=== PATIENT | female | born 1945 | race Caucasian/White ===

== ENCOUNTER → 2016-10-21 | Outpatient (CLI) | payer OTHER | LOC: FIMAGING 10:14 | PROVIDERS: ATTEND Surgery | DX: Z12.39 Encounter for other screening for malignant neoplasm of breast (principal); N64.9 Disorder of breast, unspecified ==

== ENCOUNTER → 2017-04-26 | Outpatient (CLI) | payer OTHER | LOC: FIMAGING 14:08 | PROVIDERS: ATTEND Internal Medicine Hematology & Oncology | DX: Z12.39 Encounter for other screening for malignant neoplasm of breast (principal); N63 Unspecified lump in breast; Z98.890 Other specified postprocedural states ==

== ENCOUNTER → 2017-05-08 | Outpatient (CLI) | payer OTHER | LOC: FIMAGING 09:26 | PROVIDERS: ATTEND Nurse Practitioner Adult Health | DX: Z13.820 Encounter for screening for osteoporosis (principal); M85.80 Other specified disorders of bone density and structure, unspecified site; Z78.0 Asymptomatic menopausal state ==

== ENCOUNTER → 2017-06-21 | Outpatient (CLI) | payer OTHER | LOC: FIMAGING 12:42 | PROVIDERS: ATTEND Internal Medicine Hematology & Oncology | DX: Z85.3 Personal history of malignant neoplasm of breast (principal) | CPT/HCPCS: G0204 ==

== ENCOUNTER → 2017-10-19 | Outpatient (CLI) | payer OTHER | LOC: FIMAGING 13:38 | PROVIDERS: ATTEND Internal Medicine Hematology & Oncology | DX: Z08 Encounter for follow-up examination after completed treatment for malignant neoplasm (principal); Z85.3 Personal history of malignant neoplasm of breast ==

== ENCOUNTER → 2018-02-24 | Outpatient (CLI) | payer OTHER | LOC: FIMAGING 08:31 | PROVIDERS: ATTEND Physical Medicine & Rehabilitation | DX: R29.2 Abnormal reflex (principal); Z85.3 Personal history of malignant neoplasm of breast; G31.9 Degenerative disease of nervous system, unspecified; R90.82 White matter disease, unspecified; M50.321 Other cervical disc degeneration at C4-C5 level; M53.83 Other specified dorsopathies, cervicothoracic region; M48.03 Spinal stenosis, cervicothoracic region; M41.85 Other forms of scoliosis, thoracolumbar region; M48.07 Spinal stenosis, lumbosacral region; M51.85 Other intervertebral disc disorders, thoracolumbar region ==

== ENCOUNTER → 2018-05-02 | Outpatient (CLI) | payer OTHER | LOC: FIMAGING 08:19 | PROVIDERS: ATTEND Neurological Surgery | DX: M41.86 Other forms of scoliosis, lumbar region (principal); M51.36 Other intervertebral disc degeneration, lumbar region ==

== ENCOUNTER → 2018-05-30 | Outpatient (CLI) | payer OTHER | LOC: BMCIMAGING 12:29 | PROVIDERS: ATTEND Internal Medicine | DX: Z01.818 Encounter for other preprocedural examination (principal); J44.9 Chronic obstructive pulmonary disease, unspecified; M25.552 Pain in left hip ==

== ENCOUNTER 2018-06-05 08:13 | Day surgery (SDC) | payer OTHER ==
[2018-06-05] MEDS ORDERED: NS 1,000 ML IV ONE (08:16)
[2018-06-05] MEDS ORDERED: DIAZEPAM 5 MG TAB PO ONE (08:16)
[2018-06-05] MEDS ORDERED: ASPIRIN EC 325 MG TAB PO ONE ×2 (08:16→08:58)
[2018-06-05] MEDS ORDERED: diphenhydrAMINE 25 MG CAP PO ONE ×2 (08:16→08:57)
[2018-06-05] MEDS ORDERED: FAMOTIDINE 20 MG TAB PO ONE (08:16)
[2018-06-05] MEDS ORDERED: FAMOTIDINE 20 MG TAB ONE (08:57)
[2018-06-05] MEDS ORDERED: LIDOCAINE 1% 300 MG/30 ML SDV ONE (08:57)
[2018-06-05] MEDS ORDERED: VERAPAMIL 5 MG/2 ML VIAL ONE (08:58)
[2018-06-05] MEDS ORDERED: HEPARIN 10,000 UNIT/10 ML MDV (1,000 UNIT/ML) ONE (08:58)
[2018-06-05] MEDS ORDERED: DIAZEPAM 5 MG TAB ONE (08:58)
[2018-06-05] MEDS ORDERED: MIDAZOLAM 2 MG/2 ML VIAL ONE (08:58)
[2018-06-05] MEDS ORDERED: fentaNYL 100 MCG/2 ML INJ ONE (08:58)
[2018-06-05 08:59] LABS: PLATELET COUNT 230 10^3/uL (150-400)
[2018-06-05] MEDS ORDERED: IOPAMIDOL (ISOVUE-370) 150 ML BTL IV ONE (08:59)
[2018-06-05 09:16] LABS: INR 1.02 (0.83-1.16); PROTIME(PATIENT) 13.6 SEC (12.0-15.0)
--- NOTE | 2018-06-05 09:24 | PDHPUP ---
History & Physical Update H&P update statement: This history and physical update is based on an assessment of the patient which was completed after admission or registration (within 24 hours), but prior to the surgery/procedure. H&P update: H&P reviewed & patient examined, no change in patient's condition since H&P completed (Rom test on right wrist normal at < 5 sec.)
--- NOTE | 2018-06-05 09:24 | PDPROPOC ---
Sedation Plan of Care Sedation Plan of Care: vital signs stable, mental status noted, patient educated of risks, benefits, alternatives, patient can tolerate sedation ASA Classification: ASA 1 Planned drugs: fentanyl, midazolam Mallampati Score: Class 2 Mallampati Reference Image: Patient passed 3-3-2 rule?: Yes
[2018-06-05] MEDS ORDERED: ONDANSETRON 4 MG/2 ML VIAL IVP PRN (10:18)
[2018-06-05] MEDS ORDERED: HYDROCODONE/APAP 5/325 TAB PO PRN (10:18)
[2018-06-05] MEDS ORDERED: ATROPINE SULFATE 1 MG/10 ML SYR IVP PRN (10:18)
--- NOTE | 2018-06-05 11:00 | PDDXCAT ---
Diagnostic Cath Note - . Date: 06/05/18 [employer] Farmers: Castillo Indication: other (Risk factors for CAD, abnormal nuclear stress test, and preoperative cardiac assessment.) - Procedure Access: right wrist Procedure: left heart catheterization, coronary angiography, left ventriculogram - Materials Left Heart Cath size: 5F Left Heart Cath materials: pigtail, other ([place]) - Findings-Left Heart Catheterization LM: Normal. LAD: Proximal ectasia and mild irregularities; mid-LAD 30-40%. LCX: Minimal irregularities. RCA: Mild irregularities proximal and mid-vessel. EDP: 12 mmHg LVEF: 60% Wall motion: Normal Complications: None Estimated blood loss: <50ml Closure method: TR Band Assessment: 1) Sgl-dnhx-irodloic coronary atherosclerosis. 2) Normal LV systolic function.
[2018-06-06] MEDS ORDERED: ATORVASTATIN CALCIUM 20 MG TAB PO SCH (09:00)
--- NOTE | 2018-06-07 11:52 | CPEKG ---
Test Reason : OPEN Blood Pressure : / mmHG Vent. Rate : 083 BPM Atrial Rate : 084 BPM P-R Int : 156 ms QRS Dur : 147 ms QT Int : 420 ms P-R-T Axes : 073 060 -03 degrees QTc Int : 494 ms Sinus rhythm Right bundle branch block Confirmed by Chuck Young ([id number]) on 06/07/2018 11:51:28 AM Referred By: Confirmed By:Chuck Young
== END 2018-06-05 13:15 | disposition home or self-care (01) ==
LOC: FCATH 08:13
PROVIDERS: ATTEND Internal Medicine Interventional Cardiology
DX: I25.10 Atherosclerotic heart disease of native coronary artery without angina pectoris (principal); I10 Essential (primary) hypertension; F17.200 Nicotine dependence, unspecified, uncomplicated; Z82.49 Family history of ischemic heart disease and other diseases of the circulatory system; Z85.3 Personal history of malignant neoplasm of breast
CPT/HCPCS: 93005; 93458; C1769; J1644; J2250; J3010; Q9967

== ENCOUNTER → 2018-06-08 | Outpatient (CLI) | payer OTHER | LOC: BHFA 11:30 | PROVIDERS: ATTEND Internal Medicine Cardiovascular Disease | DX: R00.2 Palpitations (principal) ==

== ENCOUNTER → 2018-06-13 | Outpatient (CLI) | payer OTHER | LOC: BHFA 15:30 | PROVIDERS: ATTEND Internal Medicine Cardiovascular Disease | DX: R06.02 Shortness of breath (principal); R00.2 Palpitations ==

== ENCOUNTER 2018-06-15 06:39 | Inpatient (IN) | payer OTHER ==
[2018-06-15] MEDS ORDERED: ACETAMINOPHEN 500 MG TAB PO ONE (06:56)
[2018-06-15] MEDS ORDERED: GABAPENTIN 300 MG CAP PO ONE (06:56)
[2018-06-15] MEDS ORDERED: morphINE PF 0.2 MG in SYRINGE INTRATHECAL 1 SYR IT ONE (06:56)
[2018-06-15] MEDS ORDERED: ceFAZolin 2 GM/DEXTROSE 100 ML IV ONE (06:56)
[2018-06-15] MEDS ORDERED: LR 1,000 ML IV ONE (06:58)
--- NOTE | 2018-06-15 07:59 | PDHPUP ---
History & Physical Update H&P update statement: This history and physical update is based on an assessment of the patient which was completed after admission or registration (within 24 hours), but prior to the surgery/procedure. H&P update: H&P reviewed & patient examined, no change in patient's condition since H&P completed, changes noted
[2018-06-15] MEDS ORDERED: BUPIVACAINE 0.25% 30 ML SDV ONE (08:24)
[2018-06-15] MEDS ORDERED: BACITRACIN 50,000 UNITS/10 ML SYR IRR ONE (08:24)
[2018-06-15] MEDS ORDERED: CHLORHEXIDINE GLUC HIBICLENS 118 ML BTL TP ONE (08:25)
[2018-06-15] MEDS ORDERED: EPINEPHrine 1 MG/ML INJ ONE (08:25)
[2018-06-15] MEDS ORDERED: THROMBIN (BOVINE) 20,000 UNIT VIAL TP ONE (08:25)
[2018-06-15] MEDS ORDERED: CITRATE DEXTROSE SOLN 500 ML BAG ONE (08:25)
--- NOTE | 2018-06-15 08:41 | PDANEPAE ---
ANE Past Medical History - Cardiovascular History Hx Hypertension: Yes Hx Arrhythmias: No Hx Chest Pain: No Hx Coronary Artery / Peripheral Vascular Disease: No Hx CHF / Valvular Disease: No Hx Palpitations: No Cardiovascular History Comment: pcp monitors bp medications - Pulmonary History Hx COPD: No Hx Asthma/Reactive Airway Disease: No Hx Recent Upper Respiratory Infection: No Hx Oxygen in Use at Home: No Hx Sleep Apnea: No Sleep Apnea Screening Result - Last Documented: Negative - Neurologic History Hx Cerebrovascular Accident: No Hx Seizures: No Hx Dementia: No Neurologic History Comment: gait disturbance d/t back issues, neurologist is following and will recheck after recovered from surgery - Endocrine History Hx Diabetes: No - Renal History Hx Renal Disorders: Yes Renal History Comment: overactive bladder- botox injections 12/2017 then became underactive had to self cath for 3 weeks, voiding normally now. hx of uti's since - Liver History Hx Hepatic Disorders: No - Neurological & Psychiatric Hx Hx Neurological and Psychiatric Disorders: No - Cancer History Hx Cancer: Yes Cancer History Comment: right breast ca. skin ca - Congenital Disorder History Hx Congenital Disorders: No - GI History Hx Gastrointestinal Disorders: Yes Gastrointestinal History Comment: GERD. constipation- uses stool softners - Other Health History Other Health History: wears reading glasses. dental fillings - Chronic Pain History Chronic Pain: Yes (back and hips) - Surgical History Prior Surgeries: cortisone shots in spine 03/2018. 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 EGD 03/2018. bunionectomy 2016 x2. right RTC surg 03/2009 d/t bone spurs. 04/2008 right breast ca. 2002 hysterectomy with bladder sling ANE Review of Systems Review of Systems: - Exercise capacity METS (RN): 4 METS ANE Patient History - Allergies Allergies/Adverse Reactions: Penicillins Allergy (Verified 05/25/18 16:09) Swelling - Home Medications Home Medications: Aspirin [Aspirin 81mg (*)] 81 mg PO DAILY 09/09/14 [Last Taken 06/08/18] Hydrochlorothiazide [HCTZ (*)] 25 mg PO DAILY 09/09/14 [Last Taken 06/08/18] Verapamil ER [Calan SR/ER 180MG (*)] 180 mg PO DAILY 09/09/14 [Last Taken ] Calcium Carb W/Vit D [Calcium Carb W/Vit D 500/200 (*)] 500 mg PO BID 10/04/18 [ Last Taken 06/08/18] Docusate Sodium [Colace 100 MG (*)] 100 mg PO BID PRN 05/24/18 [Last Taken 06/08] Estradiol [Estrace Vaginal (*)] 1 david VG Q3D 05/24/18 [Last Taken 06/13/18] Herbals/Supplements -Info Only 1 ea PO DAILY 05/24/18 [Last Taken 06/08/18] [place]-3 Fatty Acids [Fish Oil 1000 mg (*)] 1,000 mg PO HS 05/24/18 [Last Taken 06/08/18] [place]-3 Fatty Acids [Fish Oil 1000 mg (*)] 2,000 mg PO DAILY 05/24/18 [Last Taken 06/08/18] Simethicone [Gas Relief] 80 mg PO BID PRN 05/24/18 [Last Taken 06/14/18] Atorvastatin Calcium 20 mg PO HS 06/06/18 [Last Taken 06/14/18] - NPO status NPO Since - Liquids (Date): 06/15/18 NPO Since - Liquids (Time): 05:00 NPO Since - Solids (Date): 06/14/18 NPO Since - Solids (Time): 17:00 - Smoking Hx Smoking Status: Never smoked - Family Anes Hx Family Hx Anesthesia Complications: none ANE Labs/Vital Signs - Vital Signs Blood Pressure: 129/85 Heart Rate: 75 Respiratory Rate: 16 O2 Sat (%): 93 Height: 167.64 cm Weight: 65.771 kg ANE Physical Exam - Airway Neck exam: FROM Mallampati Score: Class 3 Mouth exam: normal dental/mouth exam - Pulmonary Pulmonary: no respiratory distress - Cardiovascular Cardiovascular: regular rate and rhythym - ASA Status ASA Status: II ANE Anesthesia Plan Anesthesia Plan: general endotracheal anesthesia Lines/Monitors: arterial line
[2018-06-15] MEDS ORDERED: REMIFENTANIL HCL 1 MG VIAL ONE (08:55)
[2018-06-15] MEDS ORDERED: PROPOFOL/EMULSION 500 MG/50 ML BOTTLE IV ONE ×4 (08:56→13:55)
[2018-06-15] MEDS ORDERED: DEXAMETHASONE 4 MG/ML VIAL ONE ×2 (08:56)
[2018-06-15] MEDS ORDERED: ROCURONIUM 50 MG/5 ML VIAL ONE (08:57)
[2018-06-15] MEDS ORDERED: PHENYLEPHRINE 10 MG/ML SDV ONE (08:57)
[2018-06-15] MEDS ORDERED: LIDOCAINE 2% 100 MG/5 ML SYR ONE (08:57)
[2018-06-15] MEDS ORDERED: DIAZEPAM 5 MG/ML 1 ML SYR IVP PRN ×2 (10:19→15:43)
[2018-06-15] MEDS ORDERED: ONDANSETRON 4 MG/2 ML VIAL IVP PRN ×3 (10:19→15:43)
[2018-06-15] MEDS ORDERED: MEPERIDINE 25 MG/0.5 ML AMP IVP PRN ×2 (10:19→15:43)
[2018-06-15] MEDS ORDERED: ALBUTEROL 3 ML DEYVIAL IH PRN ×2 (10:19→15:43)
[2018-06-15] MEDS ORDERED: NALOXONE HCL 0.4 MG/ML INJ IVP PRN ×2 (10:19→15:43)
[2018-06-15] MEDS ORDERED: fentaNYL 100 MCG/2 ML INJ IVP PRN ×2 (10:19→15:43)
[2018-06-15] MEDS ORDERED: DOCUSATE SODIUM 100 MG CAP PO PRN (12:06)
[2018-06-15] MEDS ORDERED: SIMETHICONE 80 MG TAB CHEW PO PRN (12:06)
[2018-06-15] MEDS ORDERED: POLYETHYLENE GLYCOL 3350 17 GM PKT PO PRN (12:07)
[2018-06-15] MEDS ORDERED: BISACODYL 10 MG SUPP PR PRN (12:07)
[2018-06-15] MEDS ORDERED: diphenhydrAMINE 25 MG CAP PO PRN (12:07)
[2018-06-15] MEDS ORDERED: LACTULOSE 20 GM/30 ML UDCUP PO PRN (12:07)
[2018-06-15] MEDS ORDERED: oxyCODONE IR 5 MG TAB PO PRN (12:07)
[2018-06-15] MEDS ORDERED: ONDANSETRON DISINTEGRATING 4 MG TAB PO PRN (12:07)
[2018-06-15] MEDS ORDERED: MAGNESIUM HYDROXIDE 30 ML UDCUP PO PRN (12:07)
[2018-06-15] MEDS ORDERED: NS 1,000 ML IV SCH (12:15)
[2018-06-15] MEDS ORDERED: NEOSTIGMINE METHYLSULFATE 5 MG/5 ML SYR ONE (14:31)
[2018-06-15] MEDS ORDERED: GLYCOPYRROLATE 0.2 MG/1 ML VIAL ONE ×2 (14:31)
--- NOTE | 2018-06-15 15:42 | POSTANESTH ---
Post Anesthetic Evaluation Cardiovascular Status: Similar to Pre-Op Cond Respiratory Status: Similar to Pre-op Cond. Level of Consciousness/Mental Status: Mildly Sleepy, Arousable Pain Control: Adequate, Prn Tx Ordered Nausea/Vomiting Control: Adequate, Prn Tx Ordered Complications Possibly Related to Anesthesia: None Noted
--- NOTE | 2018-06-15 15:45 | POSTOPPROG ---
Post Op Note Date of Operation: 06/15/18 Surgeon: Gilles Lucia Blower Room Attendant: SETH Casarez PAC Anesthesia: GET(General Endotracheal) Pre-op Diagnosis: Lumbar stenosis Post-op Diagnosis: Lumbar stenosis Indication: Lumbar stenosis Procedure: L1-L4 laminectomy, right sided TLIF L1-4, PSF L1-L4 Inf/Abcess present in the surg proc area at time of surgery?: No EBL: 100-500 Drains: Greg Voss JENNIFER Operative Report - Surgery S: resting comfortably, denies any new pain O: NAD A&Ox3 MAEx4 5/5 and equal in BUE and BLE. JPx1 Serosanguineous A/P 73y/o F s/p L1-L4 laminectomy, right sided TLIF L1-4, PSF L1-L4 -Optimize pain management -Advance diet as tolerated -LSO when OOB -JPx1 -Post op xrays pending -PT/OT -DVT prophx: TEDs, SCDs, Lovenox okay POD1
--- NOTE | 2018-06-15 16:26 | PDMN ---
Medical Necessity Medical necessity: [facility] IP only surgery; cpt 90479 Lumbar Fusion (L1-4 Lami, L1 -4 TLIF & L1-4 PSF)
[2018-06-15] MEDS: ACETAMINOPHEN 500 MG TAB PO SCH ×2 (17:23→21:25)
[2018-06-15] MEDS: ceFAZolin 2 GM/DEXTROSE 100 ML IV SCH (19:16)
[2018-06-15] MEDS: FAMOTIDINE 20 MG TAB PO SCH (21:25)
[2018-06-15] MEDS: CALCIUM CARB W/VIT D 500 MG TAB PO SCH (21:25)
[2018-06-15] MEDS: ATORVASTATIN CALCIUM 20 MG TAB PO SCH (21:25)
[2018-06-15] MEDS: SENNOSIDES/DOCUSATE SODIUM TAB PO SCH (21:25)
[2018-06-15] MEDS: METHOCARBAMOL 750 MG TAB PO PRN (21:39)
--- NOTE | 2018-06-16 00:37 | GOP ---
DATE OF OPERATION: 06/15/2018 SURGEON: Gilles Lucia MD ENGRAVER BLOCK: ASHANTI Henry. ANESTHESIA: General. PREOPERATIVE DIAGNOSIS: 1. L1 through L4 lumbar spondylosis with scoliosis. 2. Severe spinal stenosis. 3. Lower extremity radiculopathy. 4. Treatment refractory to nonoperative intervention. POSTOPERATIVE DIAGNOSIS: 1. L1 through L4 lumbar spondylosis with scoliosis. 2. Severe spinal stenosis. 3. Lower extremity radiculopathy. 4. Treatment refractory to nonoperative intervention. PROCEDURE PERFORMED: 1. Posterior arthrodesis with approach at L1, L2, L3, and L4. 2. Posterolateral fusion with bilateral pedicle screw placement at L1, L2, L3, and L4 from the [employer] Works[employer] 5.5/6.0 system. 3. Decompressive laminectomy with bilateral medial facetectomies, L1-L2, L2-L3 , and L3-L4. 4. Aggressive facetectomies right-sided L1-L2, L2-L3, and L3-L4. 5. Right-sided L1-L2 transforaminal lumbar interbody fusion with an 8 x 26 mm titanium-coated PEEK cage filled with morselized autograft and allograft. 6. Right-sided L2-L3 transforaminal lumbar interbody fusion with a 7 x 26 mm titanium coated PEEK cage filled with morselized autograft and allograft. 7. Right-sided L3-L4 transforaminal lumbar interbody fusion with a 7 x 28 mm titanium PEEK elevated cage filled with morselized autograft and allograft. 8. Posterolateral fusion on the left between L1 and L4. 9. Use of intraoperative 3D Stealth navigation. 10. Use of intraoperative fluoroscopy, less than 1 hour physician time. 11. Use of neuromonitoring. 12. Use of the operative microscope. 13. Injection of preservative-free intrathecal narcotics. FINDINGS: per imaging SPECIMENS: None. ESTIMATED BLOOD LOSS: 700 mL of which 500 mL was given back via the Cell Saver. INDICATIONS: The patient is a 73-year-old woman who presented with worsening low back pain and right lower extremity radiculopathy. She had evidence of scoliosis with severe spinal stenosis L1 through L4 including spondylosis. After discussion of the risks, benefits, and treatment alternatives and after failing nonoperative management we decided to proceed with further surgery as described above. DESCRIPTION OF PROCEDURE: The patient was brought to the operating theater and underwent general endotracheal anesthesia without complications. She had Venodynes, JACKLYN hose, and the appropriate lines placed by Anesthesia. She was flipped prone onto the Greg table. All bony prominences inspected and padded. The lower lumbar region was prepped and draped in usual sterile surgical fashion. A time-out was completed per protocol, and the patient received antibiotics within 1 hour of incision. Using lateral fluoroscopy and spinal needle, we picked our entry point to the L1 through L4 levels. This was marked in the midline. The incision was infiltrated with Marcaine with epinephrine. The incision was taken down with the scalpel blade and then using the monopolar taken down the midline through the lumbodorsal fascia and subperiosteal dissection carried to the transverse processes of L1, L2, L3, and L4. Care was taken to preserve the bilateral T12/ L1 facet joints. Deep retractors were placed to maintain our exposure. We attached the 3D Stealth navigation clamp to the spinous process of L3 and completed a 3D Stealth navigation spin. Using 3D navigation we then placed the pilot can router holes for the bilateral pedicle screws in L1, L2, L3, and L4. All holes were manually palpated with no evidence of any cortical breaches. We then tapped and placed 6.5 x 50 mm screws bilaterally in L1, L2, L3, and L4 all from [employer] 5.5/6.0 system. Another 3D Stealth navigation spin demonstrated that the right L1 pedicle was lateral. We drilled and replaced the screw medially. Another 3D Stealth navigation spin demonstrated good placement of the hardware. At this point, the microscope was brought into the field to assist with microscopic dissection and to maintain illumination and magnification. Using a combination of bur tip on the drill bit, Kerrison punches, and Leksell rongeur, we completed a decompressive laminectomy with bilateral medial facetectomies at L1-L2, L2-L3, and L3-L4. With also complete aggressive facetectomies on the right side at L1-L2, L2-L3, and L3-L4. We then moved up to the L1-L2 level. We distracted the interspace and completed a right-sided L1-L2 diskectomy. We prepared the cartilaginous endplates and measured interbody space. We then placed an 8 x 26 mm titanium-coated PEEK cage filled with morselized autograft and allograft anterior and toward the midline. We packed additional morcellized autograft into the disk space for the interbody fusion. We let down the distraction and moved down to L2-L3. We distracted the right side L2- L3 disk space and complete right L2-L3 diskectomy. We prepared the cartilaginous endplates and measured interbody space. We placed a 7 x 26 mm titanium-coated PEEK cage filled with morselized autograft and allograft into the L2-L3 disk space. We placed additional morcellized autograft in the disk space for the interbody fusion. We then moved on to the L3-L4 level where we distracted the L3-L4 and completed a right-sided L3-L4 diskectomy. We prepared the cartilaginous endplates and measured interbody space. We then placed a 7 x 28 mm titanium PEEK Elevate cage filled with morselized autograft and allograft anteriorly toward the midline. We packed additional morcellized autograft in the disk space for the interbody fusion. We let down the distraction. We decorticated the bone on the left side between L1 and L4. The wound was irrigated copiously with bacitracin irrigation. We placed 2 rods into the heads of the screws between L1 and L4 and secured them down with cap screws, which were then tightened to the business process manager's setting. We injected preservative-free intrathecal narcotics. We placed morselized autograft and allograft on the left side between L1 and L4 for the posterolateral fusion. A drain was left in the subfascial space and the wound then closed in multiple layers using Vicryl sutures for the deep layers and Dermabond for the skin. The patient's wounds were dressed sterilely. She was flipped supine onto the transfer cart. She was awakened, extubated, and taken to the recovery room in stable condition. There were no complications and no noted changes on neuromonitoring throughout the procedure. COMPLICATIONS: None. /[id number]/MODL MTDD
[2018-06-16] MEDS ORDERED: ZOLPIDEM TARTRATE 5 MG TAB PO ONE (01:30)
[2018-06-16] MEDS: ceFAZolin 2 GM/DEXTROSE 100 ML IV SCH (02:57)
[2018-06-16] MEDS: ACETAMINOPHEN 500 MG TAB PO SCH ×3 (06:14→22:08)
[2018-06-16] MEDS: HYDROCHLOROTHIAZIDE 25 MG TAB PO SCH (08:11)
[2018-06-16] MEDS: VERAPAMIL ER 180 MG TAB PO SCH (08:12)
[2018-06-16] MEDS: ASPIRIN 81 MG CHEWABLE TAB PO SCH (08:15)
[2018-06-16] MEDS: CALCIUM CARB W/VIT D 500 MG TAB PO SCH ×2 (08:15→20:23)
[2018-06-16] MEDS: FAMOTIDINE 20 MG TAB PO SCH ×2 (08:15→20:23)
[2018-06-16] MEDS: SENNOSIDES/DOCUSATE SODIUM TAB PO SCH ×2 (08:15→20:23)
[2018-06-16] MEDS ORDERED: Herbals/Supplements -Info Only PO SCH (09:00)
[2018-06-16] MEDS ORDERED: ZOLPIDEM TARTRATE 5 MG TAB PO PRN (09:04)
--- NOTE | 2018-06-16 09:04 | NEUSURGPN ---
Date of Surgery: 06/15/18 Post Op Day: 1 Assessment/Plan: Assessment: 73y/o F s/p L1-L4 laminectomy, right sided TLIF L1-4, PSF L1-L4 POD #1 Plan: -Optimize pain management, doing well this am. Will need to encourage PO medications with wearing off of IT narcotics -Advance diet as tolerated -LSO when OOB -JPx1 -Post op xrays pending -PT/OT -DVT prophx: TEDs, SCDs, Lovenox okay POD #[address] Lucia Subjective: Sitting in chair eating breakfast, doing well. Denies pain Objective: AxO x3 PERRLA SARABIA x4 5/5 BUE, BLE Neuro Check Frequency: per routine Urinary Catheter in Place: No Catheter Insertion Date: 06/15/18 - Physician Discussed Patient with : Rea Neurosurgery Physical Exam - Vitals, I&O, Labs I and O 06/15/18 06/16/18 06/17/18 05:59 05:59 05:59 Intake Total 5310 573 Output Total 1910 450 Balance 3400 123 Weight 65.771 kg Intake: Oral (ml) 1500 200 IV Intake (ml) 3600 IV Infused (ml) 210 373 Ns 1,000 ml @ 75 mls/hr 373 IV CONT AUDI Rx#: [id number] ceFAZolin 2 GM/DEXTROSE 210 100 ml @ 200 mls/hr IV Q8H AUDI Rx#:[id number] Output: Urine (ml) 890 400 Catheter 890 400 Estimated Blood Loss (ml) 700 LAMAR Drain Output (ml) 320 50 #1 Left Posterior Back 320 50 Other: Intake Quantity Yes Sufficient Vital Signs Temp Pulse Resp BP Pulse Ox 37.0 C 86 12 97/60 L 95 06/16/18 08:03 06/16/18 08:03 06/16/18 08:03 06/16/18 08:12 06/16/18 08:03 ICD10 Worksheet Patient Problems: Problems Problem Status Onset Lumbar stenosis Acute - ICD10 Problem Qualifiers (1) Lumbar stenosis
--- NOTE | 2018-06-16 16:32 | ASMTCMCOM ---
CM Note CM Note Notes: 06/16/2018 Case Management Note Pt transferred to from ICU. Pt admitted for lumbar stenosis, scoliosis and weakness. Underwent surgical procedures. PT recommending home care. Met w/pt to discuss PT recommendations. Pt in agreement. Faxed referrals to [facility]. Case Management d/c poc: associate media planner PT pending acceptance. Case Management to follow. Date Signed: 06/16/2018 04:31 PM Electronically Signed By:Roseline Ramey RN
[2018-06-16] MEDS: ENOXAPARIN 40 MG/0.4 ML SYR SC SCH (17:22)
[2018-06-16] MEDS: METHOCARBAMOL 750 MG TAB PO PRN (20:23)
[2018-06-16] MEDS: ATORVASTATIN CALCIUM 20 MG TAB PO SCH (20:23)
[2018-06-17] MEDS: ACETAMINOPHEN 500 MG TAB PO SCH ×2 (05:46→15:35)
[2018-06-17] MEDS: HYDROCHLOROTHIAZIDE 25 MG TAB PO SCH (08:18)
[2018-06-17] MEDS: FAMOTIDINE 20 MG TAB PO SCH (09:43)
[2018-06-17] MEDS: SENNOSIDES/DOCUSATE SODIUM TAB PO SCH (09:43)
[2018-06-17] MEDS: CALCIUM CARB W/VIT D 500 MG TAB PO SCH (09:43)
[2018-06-17] MEDS: ENOXAPARIN 40 MG/0.4 ML SYR SC SCH (09:43)
[2018-06-17] MEDS: ASPIRIN 81 MG CHEWABLE TAB PO SCH (09:43)
--- NOTE | 2018-06-17 10:20 | NEUSURGPN ---
Date of Surgery: 06/15/18 Post Op Day: 2 Assessment/Plan: Assessment: 73y/o F s/p L1-L4 laminectomy, right sided TLIF L1-4, PSF L1-L4 POD #2 Plan: -Optimize pain management, doing well this am. Taking limited pain medications. -LSO when OOB -Remove LAMAR -Post op xrays stable hardware placement -PT/OT -DVT prophx: TEDs, SCDs, Lovenox okay -Discharge home today with home health -Patient has history of bladder dysfunction and continues to have retention troubles. Will place morris prior to discharge. Patient will call her Urologist Dr Washington tomorrow am to be seen for plan on removal of morris. If patient is unable to contact Dr Washington, she will call our office and we can contact the neighborhood conservation officer Urologist for assistance. Discussed patient with Dr Lucia Subjective: Sitting at edge of bed, doing well. Denies any pain. Objective: AxO x4 MAEx4 5/5 BUE, BLE Sensation intact to light touch BLE Dressing CDI LAMAR patent Neuro Check Frequency: per routine Urinary Catheter in Place: No Catheter Insertion Date: 06/15/18 - Physician Discussed Patient with : Rea Neurosurgery Physical Exam - Vitals, I&O, Labs I and O 06/16/18 06/17/18 06/18/18 05:59 05:59 05:59 Intake Total 5310 1873 400 Output Total 1910 2340 30 Balance 3400 -467 370 Weight 65.771 kg Intake: Oral (ml) 1500 1500 400 IV Intake (ml) 3600 IV Infused (ml) 210 373 Ns 1,000 ml @ 75 mls/hr 373 IV CONT AUDI Rx#: [id number] ceFAZolin 2 GM/DEXTROSE 210 100 ml @ 200 mls/hr IV Q8H AUDI Rx#:[id number] Output: Urine (ml) 890 2100 Bedside Commode 100 Catheter 890 1300 Toilet 700 Estimated Blood Loss (ml) 700 LAMAR Drain Output (ml) 320 240 30 #1 Left Posterior Back 320 240 30 Other: Intake Quantity Yes Sufficient Number of Voids Bedside Commode 1 Toilet 2 Bladder Scan Volume (ml) Bedside Commode 391 Toilet 999 Vital Signs Temp Pulse Resp BP Pulse Ox 37.1 C 121 H 13 88/46 L 90 L 06/17/18 08:00 06/17/18 08:00 06/17/18 08:00 06/17/18 08:18 06/17/18 08:00 ICD10 Worksheet Patient Problems: Problems Problem Status Onset Lumbar stenosis Acute - ICD10 Problem Qualifiers (1) Lumbar stenosis
--- NOTE | 2018-06-17 10:31 | PDIAF ---
- Diagnosis Diagnosis: S/P L1-4 TLIF Code Status: Full Code - Medication Management Discharge Medications: Medications to Continue on Transfer Hydrochlorothiazide [HCTZ (*)] 25 mg PO DAILY 09/09/14 [Last Taken 06/08/18] Verapamil ER [Calan SR/ER 180MG (*)] 180 mg PO DAILY 09/09/14 [Last Taken ] Calcium Carb W/Vit D [Calcium Carb W/Vit D 500/200 (*)] 500 mg PO BID 05/24/18 [ Last Taken 06/08/18] Docusate Sodium [Colace 100 MG (*)] 100 mg PO BID PRN 05/24/18 [Last Taken 06/08] Estradiol [Estrace Vaginal (*)] 1 david VG Q3D 05/24/18 [Last Taken 06/13/18] Herbals/Supplements -Info Only 1 ea PO DAILY 05/24/18 [Last Taken 06/08/18] Simethicone [Gas Relief] 80 mg PO BID PRN 05/24/18 [Last Taken 06/14/18] Atorvastatin Calcium [Lipitor 20 mg (*)] 20 mg PO HS 06/15/18 [Last Taken Unknown] Acetaminophen [Tylenol ES 500 mg (*)] 1,000 mg PO Q8HRS tab 06/17/18 [Last Taken Unknown] Aspirin [Aspirin 81mg (*)] 81 mg PO DAILY #1 06/17/18 [Last Taken 06/08/18] Methocarbamol [Robaxin 750 mg (*)] 750 mg PO QID PRN #60 tab 06/17/18 [Last Taken Unknown] [place]-3 Fatty Acids [Fish Oil 1000 mg (*)] 1,000 mg PO HS #0 06/17/18 [Last Taken 06/08/18] [place]-3 Fatty Acids [Fish Oil 1000 mg (*)] 2,000 mg PO DAILY #0 06/17/18 [Last Taken 06/08/18] Sennosides/Docusate Sodium [Senokot-S] 1 - 2 tab PO BID tab 06/17/18 [Last Taken Unknown] Zolpidem Tartrate [Ambien 5MG (*)] 2.5 - 5 mg PO HS PRN tab 06/17/18 [Last Taken Unknown] oxyCODONE IR [Oxycodone Ir (*)] 5 - 10 mg PO Q4HRS PRN #90 tab 06/17/18 [Last Taken Unknown] Discharge Medications: Refer to the Discharge Home Medication list for PRN reason. PICC Care - Routine: N/A - Orders Services needed: Home Care, Physical Therapy, Occupational Therapy Home Care Face to Face: I certify that this patient was under my care and that I had the required [id number] encounter meeting the encounter requirements on the discharge day. My findings support the fact that the patient is homebound as defined in Home Care Face to Face Continued: CMS Chapter 7 Medicare Benefits Manual 30.1.1 , The condition of the patient is such that there exists a normal inability to leave home and consequently, leaving home would require a considerable and taxing effort. Isolation Type: Contact Isolation Diet Recommendation: no restrictions on diet Diet Texture: Regular Texture Diet Morris: Yes (Patient to call her Urologist on 06/18/18 for morris management) Activity/Weight Bearing Restrictions: Do not lift greater than 10 pounds. Do not bend or twist at the waist Equipment: Wear brace when out of bed Additional Instructions: No bending or twisting Do not lift greater than 10 pounds Wear brace when out of bed Ok to remove dressing 06/18/18 Ok to shower 06/18/18 - Follow Up Care Current Providers and Referrals: Silke Garcia MD [Primary Care Provider] - Gilles Lucia MD [Medical Doctor] - follow up in 2 weeks Alysia Washington MD [Medical Doctor] - 1-2 days
--- NOTE | 2018-06-17 11:15 | ASMTLACE ---
LACE Length of stay for Answers: 2 days current admission Acuity / Level of Answers: Yes Care: Did the patient have an inpatient admission? Comorbidities - select Answers: Any tumor (including all that apply lymphoma or leukemia) Opioid dependence / Chronic pain # of Emergency department Answers: 0 visits in the last 6 months Score: 11 Date Signed: 06/17/2018 11:15 AM Electronically Signed By:Sravanthi Lua LCSW
--- NOTE | 2018-06-17 11:35 | ASDISCHSUM ---
Discharge Information Plan Status:Home with Home Health Medically Cleared to Leave:06/17/2018 Discharge Date:06/17/2018 CM D/C Disposition:Home Health Service ADT D/C Disposition:[id number] Projected Discharge Date:06/17/2018 12:00 PM Transportation at D/C: Discharge Delay Reason: Follow-Up Date:06/17/2018 12:00 PM Discharge Slot:1 - 8:01 am - 12:00 noon Final Diagnosis:Lumbar stenosis Placement Information Referral Type:*Home Health Care Services Referral ID:[id number] Provider Name:[facility] [place] Address 1:[address] [place] [address] Address 2: City:[place] Selection Factors: State:[place] Patient Contact Information Contact Name:NICK Relationship: Address:[address] City:[place] Alternate Phone: State/Zip Code:[place] [address] Email: Financial Information Financial Class:Medicare Primary Plan Desc:MEDICARE INPATIENT Primary Plan Number:[id number] Secondary Plan Desc:MATHEW Secondary Plan Number:[id number] Assessment Information LACE LACE Length of stay for Answers: 2 days current admission Acuity / Level of Answers: Yes Care: Did the patient have an inpatient admission? Comorbidities - select Answers: Any tumor (including all that apply lymphoma or leukemia) Opioid dependence / Chronic pain # of Emergency department Answers: 0 visits in the last 6 months Score: 11 Date Signed: 06/17/2018 11:15 AM Electronically Signed By:Sravanthi Lua LCSW [facility] CM Progress Note CM Note CM Note Notes: 06/16/2018 Case Management Note Pt transferred to from ICU. Pt admitted for lumbar stenosis, scoliosis and weakness. Underwent surgical procedures. PT recommending home care. Met w/pt to discuss PT recommendations. Pt in agreement. Faxed referrals to [facility]. Case Management d/c poc: drain layer PT pending acceptance. Case Management to follow. Date Signed: 06/16/2018 04:31 PM Electronically Signed By:Roseline Ramey RN LACE LACE Length of stay for Answers: 2 days current admission Acuity / Level of Answers: Yes Care: Did the patient have an inpatient admission? Comorbidities - select Answers: Any tumor (including all that apply lymphoma or leukemia) Opioid dependence / Chronic pain # of Emergency department Answers: 0 visits in the last 6 months Score: 11 Date Signed: 06/17/2018 11:15 AM Electronically Signed By:Sravanthi Lua LCSW Intervention Information
--- NOTE | 2018-06-17 11:37 | ASMTDCNOTE ---
Case Management Discharge Discharge Order Complete? Answers: Yes Patient to Obtain Answers: via [facility] Transportation Arranged Answers: Family/Friends Transport will Pick (Date 06/17/2018 12:00 PM & Time) Faxed Final Orders Answers: Yes Notes: [facility] Notified Answers: Yes Notes: here to transpo rt Discharge Comments Notes: Patient has been discharged home w/ and [facility]. Date Signed: 06/17/2018 11:36 AM Electronically Signed By:Sravanthi Lua LCSW
[2018-06-17] MEDS: VERAPAMIL ER 180 MG TAB PO SCH (11:48)
[2018-06-17 12:38] VITALS: BP 102/59
[2018-06-17] MEDS: METHOCARBAMOL 750 MG TAB PO PRN (15:35)
[2018-06-18] MEDS ORDERED: ESTRADIOL 42.5 GM CRTUBE VG SCH (08:00)
== END 2018-06-17 16:15 | disposition home health service (06) | DRG 460 ==
LOC: F3N 06:39 → F2N 17:03 → F3N 06-16 13:56
PROVIDERS: ADMIT Neurological Surgery; ATTEND Neurological Surgery
DX: M47.26 Other spondylosis with radiculopathy, lumbar region (principal); M41.26 Other idiopathic scoliosis, lumbar region; M48.061 Spinal stenosis, lumbar region without neurogenic claudication; R33.9 Retention of urine, unspecified
CPT/HCPCS: 97116-GP; 97161-GP; 97165-GO; 97530-GO; 97530-GP; 97535-GO; C1713; G8978-GP-CJ; G8979-GP-CI; G8987-GO-CK; G8988-GO-CI; J0171; J0690; J1100; J1650; J2001; J2274; J2370; J2704; J2710

== ENCOUNTER → 2018-07-23 | Outpatient (CLI) | payer OTHER | LOC: FIMAGING 11:59 | PROVIDERS: ATTEND Physician Assistant Surgical | DX: Z98.1 Arthrodesis status (principal) ==

== ENCOUNTER → 2018-09-08 | Outpatient (CLI) | payer OTHER | LOC: FIMAGING 14:55 | PROVIDERS: ATTEND Internal Medicine Hematology & Oncology | DX: Z12.31 Encounter for screening mammogram for malignant neoplasm of breast (principal); Z85.3 Personal history of malignant neoplasm of breast ==

== ENCOUNTER → 2018-10-22 | Outpatient (CLI) | payer OTHER | LOC: BMCIMAGING 13:09 | PROVIDERS: ATTEND Orthopaedic Surgery | PROC: BQ1 Imaging, Non-Axial Lower Bones, Fluoroscopy (ICD-10-PCS; principal; 2018-10-22) | DX: M25.551 Pain in right hip (principal) ==

== ENCOUNTER → 2018-10-23 | Outpatient (CLI) | payer OTHER | LOC: FIMAGING 09:57 | PROVIDERS: ATTEND Physician Assistant | DX: Z09 Encounter for follow-up examination after completed treatment for conditions other than malignant neoplasm (principal); Z98.1 Arthrodesis status ==

== ENCOUNTER → 2019-02-04 | Outpatient (CLI) | payer OTHER | LOC: FIMAGING 07:39 ==